=== PATIENT | male | born 1940 | race Caucasian/White ===

== ENCOUNTER → 2017-01-06 | Outpatient (CLI) | payer MEDICARE, BC | LOC: MW.CHRC 09:06 | PROVIDERS: ATTEND Family Medicine | DX: I10 Essential (primary) hypertension (principal); E78.00 Pure hypercholesterolemia, unspecified; E11.65 Type 2 diabetes mellitus with hyperglycemia | CPT/HCPCS: 36415; 80053; 80061; 82044; 83036; 99214 ==

== ENCOUNTER 2021-01-21 17:37 | Emergency (ER) | payer MEDICARE, BC ==
--- NOTE | 2021-01-21 17:50 | EDM.PDOC ---
<Christophe Quintero - Last Filed: 01/21/21 17:51> ED HPI GENERAL MEDICAL PROBLEM - General Chief Complaint: Lower Extremity Injury/Pain Stated Complaint: LEGS GAVE IT OUT ON HIM Time Seen by Provider: 01/21/21 17:42 Source of Information: Reports: Patient History Limitations: Reports: No Limitations - History of Present Illness INITIAL COMMENTS - FREE TEXT/NARRATIVE: Patient is an 81-year-old male who presents today for leg weakness. Patient called EMS because he has legs giving out and he cannot get off the ground. Patient dates that he did not fall he can just slumped over and did not hit his head. EMS was called to his house earlier for the same reason the patient refused to come. Patient currently denies any pain fever chills injuries or other issues. - Related Data Allergies Allergy/AdvReac Type Severity Reaction Status Date / Time No Known Allergies Allergy Verified 01/21/21 17:45 Home Meds: Home Meds Dorzolamide HCl/Pf [Dorzolamide 2% Eye Drop] 1 drop EYEBOTH ACBREAKFAST 01/21/21 [History] Fosinopril [Monopril] 40 mg PO DAILY 01/21/21 [History] Glimepiride [Amaryl] 4 mg PO DAILY 01/21/21 [History] Latanoprost/Pf [Latanoprost 0.005% Eye Drop] 1 drop EYEBOTH DAILY 01/21/21 [History] Potassium Chloride 10 meq PO DAILY 01/21/21 [History] Pramipexole [Mirapex] 0.25 mg PO DAILY 01/21/21 [History] amLODIPine [Norvasc] 5 mg PO DAILY 01/21/21 [History] atorvaSTATin [Lipitor] 40 mg PO DAILY 01/21/21 [History] hydroCHLOROthiazide [Hydrochlorothiazide] 25 mg PO DAILY 01/21/21 [History] metFORMIN HCl [Metformin HCl] 1,000 mg PO DAILY 01/21/21 [History] ED ROS GENERAL - Review of Systems Review Of Systems: See Below Constitutional: Reports: No Symptoms HEENT: Reports: No Symptoms Respiratory: Reports: No Symptoms Cardiovascular: Reports: No Symptoms Endocrine: Reports: No Symptoms GI/Abdominal: Reports: No Symptoms : Reports: No Symptoms Musculoskeletal: Reports: No Symptoms Skin: Reports: No Symptoms Neurological: Reports: No Symptoms Psychiatric: Reports: No Symptoms Hematologic/Lymphatic: Reports: No Symptoms Immunologic: Reports: No Symptoms ED EXAM, GENERAL - Physical Exam Exam: See Below Exam Limited By: No Limitations General Appearance: Alert, WD/WN, No Apparent Distress Eye Exam: Bilateral Eye: EOMI, PERRL Respiratory/Chest: No Respiratory Distress, Lungs Clear, Normal Breath Sounds Cardiovascular: Normal Peripheral Pulses, Regular Rate, Rhythm GI/Abdominal: Normal Bowel Sounds, Soft, Non-Tender Extremities: Normal Inspection, Normal Range of Motion, Non-Tender Neurological: Alert, Oriented, Normal Cognition #1 Interpretation EKG Date: 01/21/21 Time: 17:50 Rhythm: NSR Rate (Beats/Min): 97 ST-T: Normal Departure - Departure Disposition: Home, Self-Care 01 Clinical Impression: NSTEMI (non-ST elevated myocardial infarction) - Discharge Information Referrals: PCP,None [Primary Care Provider] - Forms: ED Department Discharge - Assessment/Plan Plan: Patient is a 81-year-old male who presents today after his legs gave out he slumped down to the ground. Patient denies any falls or injury. Patient does have some melena around his mouth will obtain a guaiac CT head and labs and reassess. <Jamar Allison - Last Filed: 01/21/21 21:09> Course - Vital Signs Last Recorded V/S: Last Vital Signs Temp 97.2 F 01/21/21 17:45 Pulse 101 H 01/21/21 17:45 Resp 18 01/21/21 17:45 BP 133/63 01/21/21 17:45 Pulse Ox 92 L 01/21/21 17:45 - Orders/Labs/Meds Orders: Active Orders 24 hr Category Date Time Status Heparin Sodium Med 01/21/21 21:07 Once 5,000 units IVPUSH ONETIME ONE Heparin Sodium/0.45% NaCl [Heparin 25,000 Units in 1/2 Med 01/21/21 21:15 Ordered NS 500 ML] 500 ml IV TITRATE Sodium Chloride 0.9% [Normal Saline] 1,000 ml Med 01/21/21 20:58 Active IV .Bolus Medication Orders Sodium Chloride (Normal Saline) 1,000 mls @ 999 mls/hr IV .Bolus ONE Stop: 01/21/21 21:58 Labs: Laboratory Tests 01/21/21 01/21/21 01/21/21 Range/Units 17:50 17:50 17:50 WBC 9.66 (4.0-11.0) K/uL RBC 4.20 L (4.50-5.90) M/uL Hgb 12.8 L (13.0-17.0) g/dL Hct 38.0 (38.0-50.0) % MCV 90.5 (80.0-98.0) fL MCH 30.5 (27.0-32.0) pg MCHC 33.7 (31.0-37.0) g/dL RDW Std Deviation 45.9 (28.0-62.0) fl RDW Coeff of Nandini 14 (11.0-15.0) % Plt Count 191 (150-400) K/uL MPV 10.00 (7.40-12.00) fL Add Manual Diff YES Neutrophils % (Manual) 90 H (48.0-80.0) % Band Neutrophils % 8 % Lymphocytes % (Manual) 1 L (16.0-40.0) % Monocytes % (Manual) 1 (0.0-15.0) % Nucleated RBC % 0.0 /100WBC Absolute Seg Neuts 8.7 H (1.4-5.7) Band Neutrophils # 0.8 Lymphocytes # (Manual) 0.1 L (0.6-2.4) Monocytes # (Manual) 0.1 (0.0-0.8) Nucleated RBCs # 0 K/uL APTT 23.9 (18.6-31.3) SEC Lactate 3.6 H* (0.20-2.00) mmol/L Sodium (136-148) mmol/L Potassium (3.5-5.1) mmol/L Chloride (98-107) mmol/L Carbon Dioxide (21.0-32.0) mmol/L BUN (7.0-18.0) mg/dL Creatinine (0.8-1.3) mg/dL Est Cr Clr Drug Dosing mL/min Estimated GFR (MDRD) ml/min Glucose (74-106) mg/dL Calcium (8.5-10.1) mg/dL Phosphorus (2.6-4.7) mg/dL Magnesium (1.8-2.4) mg/dL Total Bilirubin (0.2-1.0) mg/dL AST (15-37) IU/L ALT (14-63) IU/L Alkaline Phosphatase (46-116) U/L Creatine Kinase (26-308) U/L Troponin I (0.000-0.056) ng/mL Total Protein (6.4-8.2) g/dL Albumin (3.4-5.0) g/dL Globulin (2.6-4.0) g/dL Albumin/Globulin Ratio (0.9-1.6) Lipase (73-393) U/L Urine Color Urine Appearance Urine pH (5.0-8.0) Ur Specific [place] (1.001-1.035) Urine Protein (NEGATIVE) mg/dL Urine Glucose (UA) (NEGATIVE) mg/dL Urine Ketones (NEGATIVE) mg/dL Urine Occult Blood (NEGATIVE) Urine Nitrite (NEGATIVE) Urine Bilirubin (NEGATIVE) Urine Urobilinogen (<2.0) EU/dL Ur Leukocyte Esterase (NEGATIVE) Urine RBC (0-2/HPF) Urine WBC (0-5/HPF) Ur Epithelial Cells (NONE-FEW) Urine Bacteria (NEGATIVE) Blood Type Antibody Screen 01/21/21 01/21/21 01/21/21 Range/Units 17:50 17:50 20:17 WBC (4.0-11.0) K/uL RBC (4.50-5.90) M/uL Hgb (13.0-17.0) g/dL Hct (38.0-50.0) % MCV (80.0-98.0) fL MCH (27.0-32.0) pg MCHC (31.0-37.0) g/dL RDW Std Deviation (28.0-62.0) fl RDW Coeff of Nandini (11.0-15.0) % Plt Count (150-400) K/uL MPV (7.40-12.00) fL Add Manual Diff Neutrophils % (Manual) (48.0-80.0) % Band Neutrophils % % Lymphocytes % (Manual) (16.0-40.0) % Monocytes % (Manual) (0.0-15.0) % Nucleated RBC % /100WBC Absolute Seg Neuts (1.4-5.7) Band Neutrophils # Lymphocytes # (Manual) (0.6-2.4) Monocytes # (Manual) (0.0-0.8) Nucleated RBCs # K/uL APTT (18.6-31.3) SEC Lactate (0.20-2.00) mmol/L Sodium 137 (136-148) mmol/L Potassium 3.4 L (3.5-5.1) mmol/L Chloride 97 L (98-107) mmol/L Carbon Dioxide 31.2 (21.0-32.0) mmol/L BUN 33 H (7.0-18.0) mg/dL Creatinine 1.8 H (0.8-1.3) mg/dL Est Cr Clr Drug Dosing 31.67 mL/min Estimated GFR (MDRD) 36.5 ml/min Glucose 204 H (74-106) mg/dL Calcium 9.3 (8.5-10.1) mg/dL Phosphorus 1.5 L (2.6-4.7) mg/dL Magnesium 1.4 L (1.8-2.4) mg/dL Total Bilirubin 1.0 (0.2-1.0) mg/dL AST 34 (15-37) IU/L ALT 49 (14-63) IU/L Alkaline Phosphatase 74 (46-116) U/L Creatine Kinase 146 (26-308) U/L Troponin I 0.121 H* 0.141 H* (0.000-0.056) ng/mL Total Protein 6.9 (6.4-8.2) g/dL Albumin 3.1 L (3.4-5.0) g/dL Globulin 3.8 (2.6-4.0) g/dL Albumin/Globulin Ratio 0.8 L (0.9-1.6) Lipase 86 (73-393) U/L Urine Color Urine Appearance Urine pH (5.0-8.0) Ur Specific [place] (1.001-1.035) Urine Protein (NEGATIVE) mg/dL Urine Glucose (UA) (NEGATIVE) mg/dL Urine Ketones (NEGATIVE) mg/dL Urine Occult Blood (NEGATIVE) Urine Nitrite (NEGATIVE) Urine Bilirubin (NEGATIVE) Urine Urobilinogen (<2.0) EU/dL Ur Leukocyte Esterase (NEGATIVE) Urine RBC (0-2/HPF) Urine WBC (0-5/HPF) Ur Epithelial Cells (NONE-FEW) Urine Bacteria (NEGATIVE) Blood Type O POSITIVE Antibody Screen NEGATIVE 01/21/21 01/21/21 Range/Units 20:40 20:47 WBC (4.0-11.0) K/uL RBC (4.50-5.90) M/uL Hgb (13.0-17.0) g/dL Hct (38.0-50.0) % MCV (80.0-98.0) fL MCH (27.0-32.0) pg MCHC (31.0-37.0) g/dL RDW Std Deviation (28.0-62.0) fl RDW Coeff of Nandini (11.0-15.0) % Plt Count (150-400) K/uL MPV (7.40-12.00) fL Add Manual Diff Neutrophils % (Manual) (48.0-80.0) % Band Neutrophils % % Lymphocytes % (Manual) (16.0-40.0) % Monocytes % (Manual) (0.0-15.0) % Nucleated RBC % /100WBC Absolute Seg Neuts (1.4-5.7) Band Neutrophils # Lymphocytes # (Manual) (0.6-2.4) Monocytes # (Manual) (0.0-0.8) Nucleated RBCs # K/uL APTT (18.6-31.3) SEC Lactate 2.4 H* (0.20-2.00) mmol/L Sodium (136-148) mmol/L Potassium (3.5-5.1) mmol/L Chloride (98-107) mmol/L Carbon Dioxide (21.0-32.0) mmol/L BUN (7.0-18.0) mg/dL Creatinine (0.8-1.3) mg/dL Est Cr Clr Drug Dosing mL/min Estimated GFR (MDRD) ml/min Glucose (74-106) mg/dL Calcium (8.5-10.1) mg/dL Phosphorus (2.6-4.7) mg/dL Magnesium (1.8-2.4) mg/dL Total Bilirubin (0.2-1.0) mg/dL AST (15-37) IU/L ALT (14-63) IU/L Alkaline Phosphatase (46-116) U/L Creatine Kinase (26-308) U/L Troponin I (0.000-0.056) ng/mL Total Protein (6.4-8.2) g/dL Albumin (3.4-5.0) g/dL Globulin (2.6-4.0) g/dL Albumin/Globulin Ratio (0.9-1.6) Lipase (73-393) U/L Urine Color YELLOW Urine Appearance CLEAR Urine pH 5.0 (5.0-8.0) Ur Specific [place] 1.020 (1.001-1.035) Urine Protein 30 H (NEGATIVE) mg/dL Urine Glucose (UA) NEGATIVE (NEGATIVE) mg/dL Urine Ketones TRACE H (NEGATIVE) mg/dL Urine Occult Blood NEGATIVE (NEGATIVE) Urine Nitrite NEGATIVE (NEGATIVE) Urine Bilirubin NEGATIVE (NEGATIVE) Urine Urobilinogen 1.0 (<2.0) EU/dL Ur Leukocyte Esterase NEGATIVE (NEGATIVE) Urine RBC 0-1 (0-2/HPF) Urine WBC 0-1 (0-5/HPF) Ur Epithelial Cells RARE (NONE-FEW) Urine Bacteria RARE (NEGATIVE) Blood Type Antibody Screen Meds: Medications Generic Name Dose Route Start Last Admin Trade Name Freq PRN Reason Stop Dose Admin Sodium Chloride 1,000 mls @ 999 mls/hr 01/21/21 20:58 Normal Saline IV 01/21/21 21:58 .Bolus ONE Discontinued Medications Generic Name Dose Route Start Last Admin Trade Name Freq PRN Reason Stop Dose Admin Aspirin 324 mg 01/21/21 18:43 01/21/21 18:55 Aspirin 81 Mg Tab.Chew PO 01/21/21 18:44 324 mg ONETIME ONE Administration Sodium Chloride 1,000 mls @ 1,000 mls/hr 01/21/21 18:12 01/21/21 18:18 Normal Saline IV 01/21/21 19:11 250 mls/hr .Bolus ONE Administration - Re-Assessments/Exams Free Text/Narrative Re-Assessment/Exam: 01/21/21 19:07 Patient care transitioned to f/u transfer of care to [facility] for evaluation of generalized weakness and elevated troponin. 01/21/21 21:08 Patient's troponin is stable but mildly elevated. Lactate is downtrending. Spoke with ER physician Dr. Urbina who agrees to accept patient is ED to ED transfer. Patient will be transferred for cardiology consultation as we do not have cardiology available at our institution. Departure - Departure Time of Disposition: 21:09 Condition: Fair Sepsis Event Note (ED) - Focused Exam Vital Signs: Vital Signs Temp Pulse Resp BP Pulse Ox 01/21/21 17:45 97.2 F 101 H 18 133/63 92 L - My Orders Last 24 Hours: My Active Orders 01/21/21 20:58 Sodium Chloride 0.9% [Normal Saline] 1,000 ml IV .Bolus 01/21/21 21:07 Heparin Sodium 5,000 units IVPUSH ONETIME ONE 01/21/21 21:15 Heparin Sodium/0.45% NaCl [Heparin 25,000 Units in 1/2 NS 500 ML] 500 ml IV TITRATE - Assessment/Plan Last 24 Hours: My Active Orders 01/21/21 20:58 Sodium Chloride 0.9% [Normal Saline] 1,000 ml IV .Bolus 01/21/21 21:07 Heparin Sodium 5,000 units IVPUSH ONETIME ONE 01/21/21 21:15 Heparin Sodium/0.45% NaCl [Heparin 25,000 Units in 1/2 NS 500 ML] 500 ml IV TITRATE
[2021-01-21] MEDS ORDERED: Sodium Chloride 0.9% 1,000 ML IV ONE ×2 (18:12→20:58)
[2021-01-21 18:27] LABS: CARBON DIOXIDE,CO2 31.2 mmol/L (21.0-32.0); POTASSIUM,K 3.4 mmol/L (3.5-5.1)
--- NOTE | 2021-01-21 18:32 | CT ---
INDICATION: Fall from standing position TECHNIQUE: CT head without contrast. COMPARISON: None FINDINGS: CSF spaces: Within normal limits for age. Brain parenchyma: The bey-white differentiation is normal. No sign of mass, hemorrhage, or midline shift. Mild periventricular white matter changes consistent with chronic microvascular disease. Skull base and calvarium: The visualized paranasal sinuses and mastoid air cells demonstrate no acute or significant findings. The visualized orbits are grossly unremarkable. No skull fractures. IMPRESSION: Atraumatic appearance to the brain. Please note that all CT scans at this facility use dose modulation, iterative reconstruction, and/or weight-based dosing when appropriate to reduce radiation dose to as low as reasonably achievable. Dictated by Ziyad Kidd MD @ Jan 21 2021 6:30PM Signed by Dr. Ziyad Kidd @ Jan 21 2021 6:30PM
[2021-01-21] MEDS ORDERED: Aspirin 81 MG Tab.Chew PO ONE (18:43)
--- NOTE | 2021-01-21 18:57 | CR ---
INDICATION: hypoxia TECHNIQUE: Chest 1 view. COMPARISON: 12/14/11 FINDINGS: Cardiovascular and mediastinum: Heart size and vasculature are normal in caliber and appearance. Mediastinum is within normal limits. Lungs and pleural space: Lungs are clear. No sign of infiltrate or mass. No sign of pleural effusion. No pneumothorax. Bones and soft tissues: No significant findings. IMPRESSION: Unremarkable chest. Dictated by: Ziyad Kidd MD @ 01/21/2021 18:55:14 (Electronically Signed)
[2021-01-21] MEDS ORDERED: Heparin Sodium 5,000 Units/ML Vial IVPUSH ONE (21:07)
[2021-01-21] MEDS ORDERED: Heparin Sodium/0.45% NaCl 500 ML IV SCH (21:15)
[2021-01-21 22:12] VITALS: BP 129/62; PULSE 66
== END 2021-01-21 21:57 | disposition home or self-care (01) ==
LOC: MW.ED 17:37
DX: I21.4 Non-ST elevation (NSTEMI) myocardial infarction (principal); Z79.899 Other long term (current) drug therapy
CPT/HCPCS: 36415; 70450; 71045; 80053; 81001; 82550; 82962; 83605; 83690; 83735; 84100; 84484; 85025; 85730; 86850; 86900; 86901; 93005; 96365; 99285; A9270; J1644; J7030

== ENCOUNTER 2022-01-25 15:35 | Emergency (ER) | payer MEDICARE, BC ==
[2022-01-25] MEDS ORDERED: Ondansetron 4 MG/2 ML SDV IVPUSH ONE (15:52)
[2022-01-25] MEDS ORDERED: Sodium Chloride 0.9% 10 ML Syringe FLUSH PRN (15:52)
[2022-01-25] MEDS ORDERED: Sodium Chloride 0.9% 2.5 ML Syringe FLUSH PRN (15:52)
[2022-01-25] MEDS ORDERED: Morphine 4 MG/ML VIAL IVPUSH ONE (16:20)
[2022-01-25 16:37] LABS: BLOOD UREA NITROGEN,BUN 19 mg/dL (7.0-18.0); CARBON DIOXIDE,CO2 29.1 mmol/L (21.0-32.0); CHLORIDE,CL 100 mmol/L (98-107); GLUCOSE RANDOM 127 mg/dL (74-106); LIPASE 171 U/L (73-393); POTASSIUM,K 3.7 mmol/L (3.5-5.1); SODIUM,NA 141 mmol/L (136-148)
[2022-01-25] MEDS ORDERED: Iopamidol 755 MG/ML 500 ML Multipack Bottle IVPUSH ONE (18:22)
[2022-01-25 19:37] VITALS: BP 159/81; PULSE 88
== END 2022-01-25 19:40 | disposition left against medical advice (07) ==
LOC: MW.ED 15:35
DX: K86.9 Disease of pancreas, unspecified (principal); E78.00 Pure hypercholesterolemia, unspecified; I10 Essential (primary) hypertension; E11.9 Type 2 diabetes mellitus without complications; Z79.899 Other long term (current) drug therapy; Z79.84 Long term (current) use of oral hypoglycemic drugs; Z20.822 Contact with and (suspected) exposure to COVID-19
CPT/HCPCS: 36415; 71045; 74177; 80053; 81001; 83605; 83690; 84484; 85025; 85730; 93005; 96374; 96375; 99285; J2270; J2405; Q9967; U0002; 93010; 99284

== ENCOUNTER 2022-12-09 18:52 | Emergency (ER) | payer MEDICARE, BC ==
[2022-12-09] MEDS ORDERED: Sodium Chloride 0.9% 2.5 ML Syringe FLUSH PRN (18:57)
[2022-12-09] MEDS ORDERED: Ondansetron 4 MG/2 ML SDV IVPUSH ONE (18:57)
[2022-12-09] MEDS ORDERED: Sodium Chloride 0.9% 10 ML Syringe FLUSH PRN (18:57)
[2022-12-09] MEDS ORDERED: Sodium Chloride 0.9% 1,000 ML IV ONE ×2 (18:57→20:24)
[2022-12-09 19:31] LABS: BLOOD UREA NITROGEN,BUN 50 mg/dL (7.0-18.0); CARBON DIOXIDE,CO2 27.6 mmol/L (21.0-32.0); CHLORIDE,CL 95 mmol/L (98-107); GLUCOSE RANDOM 282 mg/dL (74-106); LIPASE 146 U/L (73-393); POTASSIUM,K 3.2 mmol/L (3.5-5.1); SODIUM,NA 136 mmol/L (136-148)
[2022-12-09 19:38] LABS: ESTIMATED GFR 31 mL/min (>60)
[2022-12-09 19:57] LABS: CORONAVIRUS COVID-19 NAA NEGATIVE (NEGATIVE); INFLUENZA A NAA NEGATIVE (NEGATIVE); INFLUENZA B NAA NEGATIVE (NEGATIVE)
[2022-12-09] MEDS ORDERED: Potassium Chloride 20 MEQ in Premix Bag 1 BAG IV ONE (20:24)
[2022-12-09] MEDS ORDERED: Potassium Chloride 20 MEQ Tab.ER PO ONE (21:58)
[2022-12-10 00:18] VITALS: BP 148/74; PULSE 89
== END 2022-12-09 22:11 | disposition home or self-care (01) ==
LOC: MW.ED 18:52
DX: N17.9 Acute kidney failure, unspecified (principal); E87.6 Hypokalemia; I10 Essential (primary) hypertension; E11.9 Type 2 diabetes mellitus without complications; E78.00 Pure hypercholesterolemia, unspecified; K21.9 Gastro-esophageal reflux disease without esophagitis; Z79.899 Other long term (current) drug therapy; Z79.84 Long term (current) use of oral hypoglycemic drugs; Z20.822 Contact with and (suspected) exposure to COVID-19
CPT/HCPCS: 0240U; 36415; 71045; 74176; 80053; 80307; 81001; 83605; 83690; 85025; 87040; 93005; 96361; 96365; 96375; 99285; A9270; J2405; J3480; J3490; J7030; 93010; 99284

== ENCOUNTER 2024-10-31 12:28 | Emergency (ER) | payer MEDICARE, BC ==
[2024-10-31] MEDS: Sodium Bicarbonate 8.4% 50 MEQ/50 ML Syringe IVPUSH ONE (12:29)
[2024-10-31] MEDS: EPINEPHrine 1:10,000 1 MG/10 ML Syringe IVPUSH ONE ×3 (12:30→12:38)
[2024-10-31] MEDS: Calcium Chloride 10% 1 GM/10 ML Syringe IVPUSH ONE (12:32)
[2024-10-31] MEDS: Amiodarone 150 MG/3 ML SDV IV ONE (12:34)
[2024-10-31 12:57] VITALS: PULSE 0
[2024-10-31] MEDS: EPINEPHrine 1 MG/1 ML Amp IVPUSH ONE ×3 (15:12→15:13)
== END 2024-10-31 14:28 | disposition expired ==
LOC: MW.ED 12:28
DX: I46.9 Cardiac arrest, cause unspecified (principal); I10 Essential (primary) hypertension; E78.00 Pure hypercholesterolemia, unspecified; K21.9 Gastro-esophageal reflux disease without esophagitis; E11.9 Type 2 diabetes mellitus without complications; Z79.899 Other long term (current) drug therapy; Z79.84 Long term (current) use of oral hypoglycemic drugs
CPT/HCPCS: 92950; 96374; 96375; 99285; J0171; J0282; J3490